=== PATIENT | female | born 1970 ===

== ENCOUNTER 2017-10-02 10:26 | Outpatient (REF) | payer SELFPAY ==
[2017-10-02 19:09] LABS: HCT 38.2 % (36.0-46.0); HGB 13.3 g/dL (12.0-15.5); Mean Corp. HGB Concentration 34.8 g/dL (32.0-36.0); Mean Corpuscular Hemoglobin 30.1 pg (27.0-33.0); Mean Corpuscular Volume 86.4 fL (80-95); Mean Platelet Volume 10.6 fL (8.0-11.0); Platelet Count 271 x1000/uL (130-400); RBC 4.42 m/cumm (4.00-5.20); RBC Distribution Width 12.9 % (11.7-14.6); White Blood Cell Count 7.17 k/cumm (4.4-10.8)
[2017-10-02 19:17] LABS: Iron 81 ug/dL (50-175)
[2017-10-02 19:30] LABS: ALT 176 U/L (12-78); AST 89 U/L (15-37); Albumin 4.2 g/dL (3.4-5.0); Alkaline Phosphatase 75 U/L (46-116); Anion Gap 11.9 mmol/L (3-11); BUN 16 mg/dL (7-18); Bilirubin, Total 0.4 mg/dL (0.2-1.0); CO2 26.1 mmol/L (21.0-32.0); CREATININE 0.83 mg/dL (0.55-1.02); Calcium 9.4 mg/dL (8.5-10.1); Chloride 103 mmol/L (98-107); Ferritin 207 ng/mL (8-388); Glucose 129 mg/dL (70-100); Potassium 4.5 mmol/L (3.5-5.1); Sodium 141 mmol/L (136-145); TSH (W/Ref FT4) 1.15 uIU/mL (0.358-3.74); Total Protein 7.8 g/dL (6.4-8.2)
== END 2017-10-02 10:27 ==
LOC: NCHCN 10:26
PROVIDERS: Visit Provider Nurse Practitioner Family
DX: R73.03 Prediabetes (principal); I10 Essential (primary) hypertension; I21.4 Non-ST elevation (NSTEMI) myocardial infarction; K21.9 Gastro-esophageal reflux disease without esophagitis; Z00.00 Encounter for general adult medical examination without abnormal findings
CPT/HCPCS: 80053; 85027; 82728; 83540; 84443